=== PATIENT | female | born 1955 | race African-American/Black ===

== ENCOUNTER 2019-01-03 08:39 | Inpatient (IN) | payer BC ==
--- NOTE | 2019-01-03 07:59 | HP ---
Admitting History and Physical - Admission Chief Complaint: right knee osteoarthritis x years History of Present Illness: 63 year old female presents today in regard to her right knee. Longstanding history of right knee osteoarthritis. Patient complains of pain, limited ROM, difficulty ambulating and difficulties completing activities of daily living. Patient has failed conservative treatment options including PO medications, injections, activity modifications and exercise programs. At this point, patient wishes to proceed with surgical intervention, right total knee arthroplasty - MAKOplasty. History Source: Patient - Past Medical History Cardiovascular: Yes: HTN Musculoskeletal: Yes: Osteoarthritis Endocrine: Yes: Diabetes Mellitus - Past Surgical History Additional Past Surgical History: See written history & physical. - Smoking History Smoking history: Never smoked - Alcohol/Substance Use Hx Alcohol Use: No Home Medications - Allergies Allergies/Adverse Reactions: Allergies Allergy/AdvReac Type Severity Reaction Status Date / Time No Known Allergies Allergy Verified 12/27/18 12:45 - Home Medications Home Medications: Ambulatory Orders Amlodipine Besylate [Norvasc -] 5 mg PO BID 12/27/18 Telmisartan [Micardis] 40 mg PO DAILY 12/27/18 metFORMIN HCL [Metformin HCl] 500 mg PO BID 12/27/18 Assessment/Plan 63 year old female presents today in regard to her right knee. Longstanding history of right knee osteoarthritis. Patient complains of pain, limited ROM, difficulty ambulating and difficulties completing activities of daily living. Patient has failed conservative treatment options including PO medications, injections, activity modifications and exercise programs. At this point, patient wishes to proceed with surgical intervention, right total knee arthroplasty - MAKOplasty. Pros, cons, risks, benefits and alternatives of a right total knee arthroplasty - MAKOplasty was discussed with the patient at length. Patient confirms their understanding and consents to proceed with a right total knee arthroplasty - MAKOplasty.
[2019-01-03 10:15] VITALS: BMI 38.5
[2019-01-03] MEDS ORDERED: SODIUM CHLORIDE 0.9% P/F 10 ML VIAL IJ ONE (11:23)
[2019-01-03] MEDS ORDERED: MIDAZOLAM HCL 2 MG/2 ML SINGLE DOSE VIAL ONE ×2 (11:23→14:04)
[2019-01-03] MEDS ORDERED: BUPIVACAINE LIPOSOME/PF (EXPAREL) 266 MG/20 ML VIAL ONE (11:23)
[2019-01-03] MEDS ORDERED: ceFAZolin SODIUM 1 GM VIAL ONE (11:52)
[2019-01-03] MEDS ORDERED: VANCOMYCIN 1,000 MG VIAL (RESTRICTED TO ID ONLY) ONE (11:52)
[2019-01-03] MEDS ORDERED: TRANEXAMIC ACID 1000 MG/10 ML VIAL ONE (11:52)
[2019-01-03] MEDS ORDERED: oxyCODONE HCL 10 MG SUSTAINED ACTING TABLET PO ONE (11:53)
[2019-01-03] MEDS ORDERED: GABAPENTIN 300 MG CAPSULE (FP) PO ONE (11:53)
[2019-01-03] MEDS ORDERED: CELECOXIB 200 MG CAPSULE PO ONE (11:53)
[2019-01-03] MEDS ORDERED: TRANEXAMIC ACID 1000 MG/10 ML VIAL IVPUSH ONE ×3 (11:53→15:46)
[2019-01-03] MEDS ORDERED: CEFAZOLIN 2 GM/D5W 2 GM/50 ML ML IVPB ONE (11:53)
[2019-01-03] MEDS ORDERED: ePHEDrine SULFATE 50 MG/1 ML AMPULE ONE (13:24)
[2019-01-03] MEDS ORDERED: BUPIVACAINE 0.75% IN DEXTROSE/PF 2ML AMPULE NR ONE (14:24)
[2019-01-03] MEDS ORDERED: ONDANSETRON 4 MG/2 ML VIAL IVPUSH PRN ×2 (14:57→16:45)
[2019-01-03] MEDS ORDERED: oxyCODONE HCL 5 MG TABLET PO PRN (14:58)
[2019-01-03] MEDS ORDERED: VANCOMYCIN 1,000 MG VIAL (RESTRICTED TO ID ONLY) IVPB ONE (15:03)
[2019-01-03] MEDS ORDERED: PROPOFOL 20 ML ONE (15:30)
[2019-01-03] MEDS ORDERED: BUPIVACAINE HCL/PF 0.5% (5MG/ML) 10 ML VIAL ONE (15:49)
[2019-01-03] MEDS ORDERED: BUPIVACAINE HCL/PF (5 MG/ML) 30 ML VIAL IJ ONE (15:51)
--- NOTE | 2019-01-03 16:43 | OP ---
Operative Note - Note: Operative Date: 01/03/19 Pre-Operative Diagnosis: right knee OA Operation: right MIRTHA TKA Post-Operative Diagnosis: Same as Pre-op Surgeon: Subhash Mills Hog Ribber: Debbie Weiss Anesthesia: Spinal Estimated Blood Loss (mls): 300
[2019-01-03] MEDS ORDERED: LACTATED RINGERS SOLUTION 1,000 ML IV SCH (16:45)
[2019-01-03] MEDS ORDERED: MAG HYDROX/AL HYDROX/SIMETH 30 ML UNIT-DOSE CUP PO PRN (16:45)
[2019-01-03] MEDS ORDERED: MAGNESIUM HYDROX 2400MG/30ML ORAL SUSPENSION 30 ML CUP PO PRN (16:45)
[2019-01-03] MEDS ORDERED: KETOROLAC TROMETHAMINE 30 MG/1 ML VIAL ONE (16:50)
[2019-01-03] MEDS ORDERED: ACETAMINOPHEN 1000 MG/100 ML VIAL (NON FORMULARY) IVPB ONE (16:50)
[2019-01-03] MEDS ORDERED: ACETAMINOPHEN INJECTION 100 ML IVPB ONE (16:51)
[2019-01-03] MEDS ORDERED: traMADol HCL 50 MG TABLET ONE (16:51)
[2019-01-03] MEDS ORDERED: CEFAZOLIN 2 GM/D5W 2 GM/50 ML ML IVPB SCH (18:00)
[2019-01-03] MEDS ORDERED: oxyCODONE HCL 5 MG TABLET ONE (18:04)
[2019-01-03] MEDS: oxyCODONE HCL 5 MG TABLET PO PRN (18:05)
[2019-01-03] MEDS: CELECOXIB 200 MG CAPSULE PO SCH (21:51)
[2019-01-03] MEDS: ACETAMINOPHEN 325 MG TABLET (FP) PO SCH (21:51)
[2019-01-03] MEDS: amLODIPine BESYLATE 5 MG TABLET (FP) PO SCH (21:59)
[2019-01-03] MEDS: GABAPENTIN 300 MG CAPSULE (FP) PO SCH (21:59)
[2019-01-03] MEDS: ASCORBIC ACID 500 MG TABLET (FP) PO SCH (22:01)
[2019-01-03] MEDS: SENNOSIDES/DOCUSATE COMBO (SENNA PLUS) TABLET (UD) PO SCH (22:01)
[2019-01-03] MEDS: oxyCODONE HCL 10 MG SUSTAINED ACTING TABLET PO SCH (22:01)
[2019-01-03] MEDS: CEFAZOLIN 2 GM/D5W 2 GM/50 ML ML IVPB SCH (22:02)
[2019-01-03] MEDS: traMADol HCL 50 MG TABLET PO SCH (23:00)
[2019-01-04] MEDS ORDERED: DEXAMETHASONE SOD PHOSPHATE 10 MG/1 ML VIAL IVPB ONE
[2019-01-04] MEDS: KETOROLAC TROMETHAMINE 30 MG/1 ML VIAL IVPUSH SCH ×4 (00:39→11:47)
[2019-01-04] MEDS: ACETAMINOPHEN 325 MG TABLET (FP) PO SCH ×5 (03:00→21:19)
[2019-01-04] MEDS: CEFAZOLIN 2 GM/D5W 2 GM/50 ML ML IVPB SCH (05:20)
[2019-01-04] MEDS: traMADol HCL 50 MG TABLET PO SCH ×5 (05:21→23:20)
[2019-01-04] MEDS: metFORMIN HCL 500 MG TABLET (FP) PO SCH ×4 (06:06→16:33)
[2019-01-04] MEDS: LACTATED RINGERS SOLUTION 1,000 ML IV SCH (06:41)
[2019-01-04 08:11] LABS: HEMATOCRIT 32.8 % (32.4-45.2); HEMOGLOBIN 10.2 GM/dl (10.7-15.3); MCH 22.4 pg (25.7-33.7); MCHC 31.1 g/dl (32.0-36.0); MEAN CELL VOLUME 72.2 fl (80-96); MEAN PLT VOLUME 9.9 fl (7.5-11.1); PLATELET COUNT 185 K/MM3 (134-434); RBC 4.54 M/mm3 (3.60-5.2); RDW 14.7 % (11.6-15.6)
[2019-01-04 08:22] LABS: CALCIUM 8.7 mg/dl (8.5-10); POTASSIUM 4.8 mmol/L (3.5-5.1)
[2019-01-04] MEDS: ASPIRIN 325 MG TABLET PO SCH (08:47)
[2019-01-04] MEDS: oxyCODONE HCL 5 MG TABLET PO PRN (08:48)
[2019-01-04] MEDS: CELECOXIB 200 MG CAPSULE PO SCH ×2 (10:19→21:19)
[2019-01-04] MEDS: amLODIPine BESYLATE 5 MG TABLET (FP) PO SCH ×2 (10:20→21:19)
[2019-01-04] MEDS: VALSARTAN 160 MG TABLET (UD) PO SCH (10:20)
[2019-01-04] MEDS: GABAPENTIN 300 MG CAPSULE (FP) PO SCH ×2 (10:20→21:19)
[2019-01-04] MEDS: ASCORBIC ACID 500 MG TABLET (FP) PO SCH ×2 (10:21→21:19)
[2019-01-04] MEDS: MULTIVITAMINS (DAILY MVI) TABLET (FP) PO SCH (10:21)
[2019-01-04] MEDS: oxyCODONE HCL 10 MG SUSTAINED ACTING TABLET PO SCH ×2 (10:21→21:18)
[2019-01-04] MEDS: SENNOSIDES/DOCUSATE COMBO (SENNA PLUS) TABLET (UD) PO SCH ×2 (10:21→21:19)
[2019-01-04] MEDS: PANTOPRAZOLE 40 MG TABLET (FP) PO SCH (10:21)
--- NOTE | 2019-01-04 15:54 | PN ---
Progress Note (short form) - Note Progress Note: S: Pt. sitting after doing PT. No complaints. O: VAS 2/10 A/P: POD #1 s/p Right Total Knee Replacement 1) Continue pain meds as ordered 2) No apparent anesthetic complications
--- NOTE | 2019-01-05 02:00 | PN ---
Progress Note (short form) - Note Progress Note: Pt seen and examined. Doing well. AVSS Selected Entries 01/04/19 22:00 Temperature 97.5 F L Pulse Rate 63 Respiratory 18 Rate Blood Pressure 143/53 L O2 Sat by Pulse 100 Oximetry (%) Oxygen Delivery Room Air Method Laboratory Tests 01/04/19 01/04/19 07:29 07:29 WBC 5.0 Hgb 10.2 L Hct 32.8 Plt Count 185 Sodium 137 Potassium 4.8 Chloride 99 Carbon Dioxide 29 BUN 10.0 Creatinine 1.0 Random Glucose 142 H Calcium 8.7 Gen:NAD RLE: c/d/i, NVID A/P POD #1 s/p R TKA PT/OOB D/C home in AM
--- NOTE | 2019-01-05 02:04 | DS ---
Physical Examination Vital Signs: Vital Signs Temperature 97.5 F L 01/04/19 22:00 Pulse Rate 63 01/04/19 22:00 Respiratory Rate 18 01/04/19 22:00 Blood Pressure 143/53 L 01/04/19 22:00 O2 Sat by Pulse Oximetry (%) 100 01/04/19 22:00 Labs: CBC, BMP 01/04/19 07:29 01/04/19 07:29 Discharge Summary Reason For Visit: RIGHT KNEE OSTEOARTHRITIS Current Active Problems Osteoarthritis of right knee (Acute) Procedures: Principal: right MIRTHA TKA Hospital Course: Admitted for elective surgery. Procedure performed without complications. Pt received postoperative antibiotic prophylaxis and DVT ppx. Ambulated with physical therapy. Stable for discharge home with outpatient followup. Condition: Stable - Instructions Diet, Activity, Other Instructions: Dr. Mills - Knee Replacement Instructions Keep the Aquacel dressing on until removed by Dr. Mills in 10-14 days - it is antibacterial and waterproof and you can shower with it on. Call the office for a follow-up appointment with Dr. Mills in 10-14 days. Take one Aspirin 325mg daily for 6 weeks to prevent blood clots in your legs. Take one Pantoprazole 40mg daily for 6 weeks to protect against heartburn and ulcers. Take Cephalexin (antibiotic) 3x/day for 10 days to help prevent skin infection. Take Celebrex 200mg twice daily for 30 days to reduce swelling and inflammation. Take a multivitamin, stool softener, and extra Vitamin C supplement daily. For pain: *Mild pain (1-3/10): Take 1 Tramadol tablet every 4 hours as needed. Moderate pain (4-6/10): Take 1 Tramadol tablet and 1 Percocet tablet every 4 hours as needed. Severe pain (7-10/10): Take 1 Tramadol tablet and 2 Percocet tablets every 4 hours as needed. Activity: You can put as much weight on the operative leg as you want. Right after you get home, there will be a physical therapist coming to your house to help you walk around and bend/straighten your knee. After your follow-up appointment, you will be sent for more intensive outpatient physical therapy which will include machines and equipment that the home therapist cannot bring to your house. Always use a walker or cane for balance and to prevent falls. Expect to see swelling/bruising from the operative site all the way down to your toes. Wear the compression stocking on the operative side during the day to minimize how much swelling there is in your foot/ankle. Don't wear the stocking at night. You don't have to wear a stocking on the other side. Buy a shoe lift for your other leg (such as Adjustalift from [employer]) to compensate for it not being straight due to arthritis. Disposition: [facility]/HOME HEALTH CARE - Home Medications Comprehensive Discharge Medication List: Ambulatory Orders Amlodipine Besylate [Norvasc -] 5 mg PO BID 12/27/18 Telmisartan [Micardis] 40 mg PO DAILY 12/27/18 metFORMIN HCL [Metformin HCl] 500 mg PO BID 12/27/18 Ascorbic Acid [Vitamin C -] 500 mg PO BID tablet 01/05/19 Aspirin [ASA -] 325 mg PO DAILY@0800 tablet 01/05/19 Celecoxib [CeleBREX -] 200 mg PO BID #60 capsule 01/05/19 Cephalexin Monohydrate [Keflex -] 500 mg PO TID #30 capsule 01/05/19 Multivitamins [Multivit ([facility] Formulary)] 1 tab PO DAILY tab 01/05/19 Oxycodone HCl/Acetaminophen [Percocet 5-325 mg Tablet] 1 - 2 tab PO Q4H PRN #60 tablet MDD 10 01/05/19 Pantoprazole Sodium [Protonix -] 40 mg PO DAILY #40 tablet.ec 01/05/19 Sennosides/Docusate Sodium [Pericolace -] 2 tablet PO BID tablet 01/05/19 traMADol HCL [Ultram -] 50 mg PO Q4H PRN #42 tablet MDD 6 01/05/19
[2019-01-05] MEDS: ACETAMINOPHEN 325 MG TABLET (FP) PO SCH ×3 (03:55→15:18)
[2019-01-05] MEDS: traMADol HCL 50 MG TABLET PO SCH ×2 (06:20→11:59)
[2019-01-05] MEDS: metFORMIN HCL 500 MG TABLET (FP) PO SCH ×2 (06:20→15:47)
[2019-01-05] MEDS: ASPIRIN 325 MG TABLET PO SCH (07:32)
[2019-01-05 08:03] LABS: HEMATOCRIT 31.3 % (32.4-45.2); HEMOGLOBIN 9.7 GM/dl (10.7-15.3); MCH 22.5 pg (25.7-33.7); MEAN CELL VOLUME 72.5 fl (80-96); PLATELET COUNT 166 K/MM3 (134-434); RBC 4.32 M/mm3 (3.60-5.2); RDW 14.6 % (11.6-15.6); WHITE BLOOD COUNT 5.9 K/mm3 (4.0-10.8)
[2019-01-05] MEDS: GABAPENTIN 300 MG CAPSULE (FP) PO SCH (09:10)
[2019-01-05] MEDS: MULTIVITAMINS (DAILY MVI) TABLET (FP) PO SCH (09:10)
[2019-01-05] MEDS: PANTOPRAZOLE 40 MG TABLET (FP) PO SCH (09:11)
[2019-01-05] MEDS: SENNOSIDES/DOCUSATE COMBO (SENNA PLUS) TABLET (UD) PO SCH (09:11)
[2019-01-05] MEDS: VALSARTAN 160 MG TABLET (UD) PO SCH (09:11)
[2019-01-05] MEDS: ASCORBIC ACID 500 MG TABLET (FP) PO SCH (09:11)
[2019-01-05] MEDS: CELECOXIB 200 MG CAPSULE PO SCH (09:11)
[2019-01-05] MEDS: oxyCODONE HCL 10 MG SUSTAINED ACTING TABLET PO SCH (09:12)
[2019-01-05] MEDS: amLODIPine BESYLATE 5 MG TABLET (FP) PO SCH (09:12)
[2019-01-05] MEDS: LACTATED RINGERS SOLUTION 1,000 ML IV SCH ×2 (11:19→15:20)
[2019-01-05 14:23] VITALS: BP 116/58; PULSE 66; TEMP 97.7
--- NOTE | 2019-01-07 16:28 | PATH ---
Surgical Pathology Report Patient Name: AJITH MATTHEWS Med. Rec. #: [id number] /Age/Gender: 1955 (Age: 63) / F Account: [id number] Location: [facility] MED-SURG Taken: 01/03/2019 Received: 01/03/2019 Reported: 01/07/2019 Physicians: Subhash Mills M.D. Specimen(s) Received RIGHT KNEE BONES Clinical History Right knee osteoarthritis Final Diagnosis BONE, KNEE, RIGHT, TOTAL KNEE REPLACEMENT MAKOPLASTY: BONE WITH DEGENERATIVE JOINT DISEASE AND SYNOVIUM. Electronically Signed Mandy Peres M.D. Gross Description Received in formalin labeled "right knee bones," is an 11.0 x 10.5 x 2.0 cm aggregate of multiple arellano-yellow, irregular portions of bone and soft tissue, consistent with knee bones. One of the bones displays a 2.3 cm greatest dimension area of eburnation. The remaining articular surfaces are arellano-yellow and diffusely nodular and granular. The underlying trabecular bone is yellow and hard. Orthopedics Nurse sections are submitted in one cassette, following decalcification. /01/05/2019 [facility]
--- NOTE | 2019-01-25 00:52 | SPEC ---
DATE OF OPERATION: 01/03/2019 PREOPERATIVE DIAGNOSIS: Right knee osteoarthritis. POSTOPERATIVE DIAGNOSIS: Right knee osteoarthritis. PROCEDURE: Right total knee replacement with Makoplasty robotic navigation. ATTENDING: Paxton Rai M.D. CITY EDITOR: Yesenia Adrian ANESTHESIA: Spinal plus sedation. ESTIMATED BLOOD LOSS: 300 mL. COMPLICATIONS: None. DISPOSITION: The patient was transferred to the PACU in stable condition. IMPLANTS USED: Yoav Triathlon size 6 femoral component and size 6 tibial component, 35-mm patellar component, a 19-mm total stabilized polyethylene component. INDICATION: A 63-year-old female who presents to the office complaining of severe bilateral knee pain and deformity. She was seen and examined by Dr. Rai and diagnosed with severe bilateral knee osteoarthritis and notable valgus deformity. The patient was initially treated nonoperatively with conservative management but continued to have severe pain and ambulatory dysfunction. She was therefore indicated for total knee replacement. We elected to proceed with the right because that was the most painful of the 2 and also had the greater valgus deformity. The risks, benefits, and alternatives of the procedure were explained to the patient in great detail, and she elected to proceed with surgery. On the day of surgery, the patient was taken to the operating room and placed on the OR table. Spinal anesthesia was administered by the anesthesiologist. The patient was then positioned supine on the table and all bony prominences were padded. The knee was then prepped and draped in the usual sterile fashion and intravenous antibiotics were given for infection prophylaxis. A surgical time-out was then performed with the team, and the patients identity, procedure, side, availability of implants, and the administration of antibiotics was confirmed. With the knee flexed, a midline incision was made and carried down through the subcutaneous fat to the underlying retinaculum. A medial parapatellar arthrotomy was performed. This was followed by a subperiosteal dissection of the tissue off the proximal, medial tibia. A portion of fat pad was removed from under the patellar tendon, and a small portion of fat was excised off the distal supracondylar femur. Electrocautery and an SHADOWamantyOpeepl bipolar sealing device were used to achieve hemostasis. The knee was then flexed further and the anterior horn of the lateral meniscus was released from the midline. Next, the anterior and posterior cruciate ligaments were transected. Grade 4 changes were noted diffusely throughout the knee. Femoral and tibial checkpoints were then placed in the appropriate location using a mallet. Two parallel bicortical self-drilling pins were placed in the tibial diaphysis after making stab incisions and bluntly dissecting down to bone. Two pins were then placed in the distal supracondylar femur. The [employer] navigation arrays were then attached to both the femoral and tibial pins and the lower extremity was then registered to the robotic navigation device using various joint movements, as well as inputting several dozen reference points. The knee was then taken through a full range of motion with a corrective force applied. Alignment in varus/valgus as well as flexion/extension and soft tissue balance was measured in various positions. The navigation device showed a numerical and graphic representation of the soft tissue balance. The components were repositioned virtually using the software until optimal soft tissue balance was achieved on screen. Once this was accomplished, the final plan was saved and sent to the robot. Self-retaining retractors were then placed at the joint line for exposure and protection of the collateral ligaments. The robot was brought into the sterile field and registered with the navigation device. The robotic arm with attached oscillating saw blade was then used to perform femoral and tibial bone cuts as per the saved software plan. The femoral box cut was made using the appropriately sized manual cutting guide. The knee was then irrigated. Trial components were placed and the knee was taken through a full range of motion to assess soft tissue balance and alignment. The range of motion was found to be excellent and the soft tissue balance was optimal and according to plan. The knee was then put into extension and the patella everted. The synovium around the patella was circumscribed with electrocautery. A caliper was used to measure the patellar thickness and a saw was then used to resect the patella at the chondro-osseous junction. The cut surface was then sized and drilled for the appropriate patellar button, with care taken to medialize it. A trial patella was then placed and the knee was again taken through a full range of motion. The knee was found to have both good balance and good patellar tracking. All of the components were removed except the tibial base plate. The appropriate instrumentation was used to drill and punch the proximal tibia for the keel of the final component. All bony surfaces were then cleaned with pulsatile lavage and dried. Bone cement was then prepared on the back table, and final components were cemented in place in the usual fashion. Extruded cement was removed. The polyethylene trial was placed, the knee was put into extension, and axial pressure was applied for compression while the cement hardened. The patellar button was similarly cemented into place. Once the cement had hardened, the knee was taken through a full range of motion to assess stability, balance, and patellar tracking. This was found to be optimal and the trial polyethylene was exchanged for the appropriately sized real implant. The wound was then thoroughly irrigated with normal saline. A 3-minute dilute Betadine lavage was performed. The knee was again irrigated using a pulsatile lavage device. A periarticular injection was used to locally infiltrate the capsular tissues surrounding the implant and prosthesis. Then No. 1 Polysorb and 0 VLoc 180 barbed sutures were used to close the arthrotomy. Then No. 1 Polysorb and 2-0 VLoc 90 sutures were used in the subcutaneous tissues. Then 4-0 undyed Vicryl and Dermabond skin adhesive was used to close the stab incisions made for the navigation pins. The skin was closed using both 3-0 VLoc 90 suture in a running subcuticular fashion and Dermabond skin adhesive. Once this was completed a sterile Aquacel dressing and compressive Ottoniel-wrap was applied. The patient was then awakened and taken to the PACU in stable condition. PAXTON RAI M.D. [id number]
== END 2019-01-05 15:50 | disposition home health service (06) | DRG 470 ==
LOC: FM/S 08:39
PROVIDERS: ADMIT Student in an Organized Health Care Education/Training Program; ATTEND Student in an Organized Health Care Education/Training Program
PROC: 8E0Y0CZ Robotic Assisted Procedure of Lower Extremity, Open Approach (ICD-10-PCS; 2019-01-03)
PROC: 0SRC0J9 Replacement of Right Knee Joint with Synthetic Substitute, Cemented, Open Approach (ICD-10-PCS; principal; 2019-01-03 12:58)
DX: M17.11 Unilateral primary osteoarthritis, right knee (principal); I10 Essential (primary) hypertension; E11.9 Type 2 diabetes mellitus without complications
CPT/HCPCS: 36415; 73560-TC-RT-FY; 80048; 82962; 85027; 88305-TC; 88311-TC; 94760; 97116-GP; 97163-GP; J0131; J1100